=== PATIENT | male | born 1965 | race African-American/Black ===

== ENCOUNTER 2019-08-26 16:39 | Emergency (ER) | payer MEDICAID ==
[~2019-08-26] VITALS: Ht 182.9 cm; Wt 97.1 kg
[2019-08-26 16:50] VITALS: Ht 182.9 cm; Wt 97.1 kg
[2019-08-26 18:13] VITALS: BP 161/95
== END 2019-08-26 18:13 | disposition home or self-care (01) ==
LOC: ED 16:39
DX: S43.401A Unspecified sprain of right shoulder joint, initial encounter (principal); I10 Essential (primary) hypertension; V49.3XXA Car occupant (driver) (passenger) injured in unspecified nontraffic accident, initial encounter; Y93.I9 Activity, other involving external motion; Y92.413 State road as the place of occurrence of the external cause; Y99.8 Other external cause status
CPT/HCPCS: J1885